=== PATIENT | female | born 1955 | race Caucasian/White ===

== ENCOUNTER → 2020-03-06 | Outpatient (CLI) | payer MEDICARE, MEDICAID ==
[~2020-03-06] MED LIST: ALBU18HF2 INH; ASPI81TA44 PO; BARIUM SULFATE 340 ML SUSP.RECON***PROCEDURE AREA ONLY**DONT ENTER PO ONE; DULO60CA65 PO; LOSA1TAB39 PO; MONT10TA21 PO; PANT40TA54 PO
== END | disposition home or self-care (01) ==
LOC: RAD 09:21
PROVIDERS: ATTEND Internal Medicine
DX: K31.1 Adult hypertrophic pyloric stenosis (principal)
CPT/HCPCS: 74220

== ENCOUNTER 2020-05-26 10:26 | Day surgery (SDC) | payer MEDICARE, MEDICAID ==
[2020-05-26] VITALS (9 sets, daily range): BP systolic 128–146; BP diastolic 42–89
[~2020-05-26 10:26] MED LIST changes: -BARIUM SULFATE 340 ML SUSP.RECON***PROCEDURE AREA ONLY**DONT ENTER PO ONE
[2020-05-26] MEDS ORDERED: fentaNYL/PF 50MCG/1 ML 2ML syringe ONE (10:43)
[2020-05-26] MEDS ORDERED: LIDOcaine 1% (10mg/ml)w/preservative injection 20ml MDV ONE (10:43)
[2020-05-26] MEDS ORDERED: iohexol 350 MG/ML 50ML vial IV ONE (10:43)
[2020-05-26] MEDS ORDERED: iohexol 350MG/ML 100ml bottle IV ONE ×2 (10:43→12:16)
[2020-05-26] MEDS ORDERED: midazolam 2 mg/2 ml injection ONE ×3 (10:43→11:59)
[2020-05-26] MEDS ORDERED: heparin 1,000unit/ml 10ml vial 10 ML ONE (10:43)
[2020-05-26] MEDS ORDERED: normal saline 1,000 ML IV SCH (10:50)
[2020-05-26] MEDS ORDERED: diphenhydrAMINE 25mg capsule PO PRN (10:50)
[2020-05-26] MEDS ORDERED: SIMV-45 PO (11:01)
[2020-05-26] MEDS ORDERED: POTA15TA (11:01)
[2020-05-26] MEDS ORDERED: SUCR1TAB PO (11:01)
[2020-05-26] MEDS ORDERED: FLUT16SP26 (11:01)
[2020-05-26] MEDS ORDERED: LORA10TA7 PO (11:01)
[2020-05-26] MEDS ORDERED: LEVO88TA7 PO (11:01)
[2020-05-26] MEDS ORDERED: MULT-1085 PO (11:01)
[2020-05-26] MEDS ORDERED: FERR-106 PO (11:01)
[2020-05-26 11:23] LABS: BASOPHILS # (AUTO) 0.1 X10'3 (0-0.2); BASOPHILS % (AUTO) 0.8 % (0-1); EOSINOPHILS # (AUTO) 0.4 X10'3 (0-0.9); EOSINOPHILS % (AUTO) 3.9 % (0-6); HEMATOCRIT 35.6 % (35.0-45.0); HEMOGLOBIN 11.9 g/dl (12.0-16.0); LYMPHOCYTES # (AUTO) 2.5 X10'3 (1.1-4.8); LYMPHOCYTES % (AUTO) 22.9 % (21-51); MEAN CORPUSCULAR HEMOGLOBIN 28.3 PG (27.0-31.0); MEAN CORPUSCULAR HGB CONC 33.4 g/dL (33.0-36.5); MEAN CORPUSCULAR VOLUME 84.7 FL (78-98); MONOCYTES # (AUTO) 0.7 X10'3 (0-0.9); MONOCYTES % (AUTO) 6.1 % (2-12); NEUTROPHILS # (AUTO) 7.1 X10'3 (1.8-7.7); NEUTROPHILS % (AUTO) 66.3 % (42-75); PLATELET COUNT 329 X10'3 (140-440); RED CELL DISTRIBUTION WIDTH 14.3 % (11.5-14.5); WHITE BLOOD COUNT 10.8 X10'3 (4.5-11.0)
[2020-05-26 11:29] LABS: ALBUMIN 3.4 G/DL (3.4-5.0); ANION GAP 11 (8-16); BLOOD UREA NITROGEN 14 MG/DL (7-18); BUN/CREATININE RATIO 10.1 (6.6-38.0); CALCIUM 9.4 MG/DL (8.5-10.1); CHLORIDE 106 MMOL/L (99-107); CREATININE 1.39 MG/DL (0.40-0.90); GLUCOSE 112 MG/DL (70-104); MAGNESIUM 1.8 MG/DL (1.5-2.4); POTASSIUM 3.1 MMOL/L (3.5-5.1); SODIUM 144 MMOL/L (135-145); TOTAL CARBON DIOXIDE 27.3 MMOL/L (24-32); eGFR 38 ML/MIN
[2020-05-26] MEDS ORDERED: adenosine kit for FFR above 120KG-Cath lab only IV ONE (12:11)
[2020-05-26] MEDS ORDERED: HYDROmorphone 1 mg/ml syringe ONE (12:20)
[2020-05-26] MEDS ORDERED: clopidogrel 300mg tablet ONE (12:31)
[2020-05-26] MEDS ORDERED: normal saline 1000ml 1,000 ML IV SCH (13:10)
[2020-05-26] MEDS ORDERED: ondansetron/PF 4mg/2ml inj IV PRN (13:10)
[2020-05-26] MEDS ORDERED: HYDROcodone/acetaminophen 5mg/325mg tablet PO PRN (13:15)
[2020-05-26] MEDS ORDERED: OXAZEpam 15mg capsule PO PRN (13:15)
[2020-05-26] MEDS ORDERED: HYDROcodone/acetaminophen 10/325mg tab PO PRN (13:15)
[2020-05-26] MEDS ORDERED: proCHLORperazine 10 MG/2 ml inj IV PRN (13:50)
[2020-05-26] MEDS ORDERED: acetaminophen 325mg tablet PO PRN (13:50)
[2020-05-26] MEDS ORDERED: potassium Cl 20 mEq SR tablet PO ONE (13:55)
[2020-05-26] MEDS ORDERED: potassium Cl 20mEq/100mL bag 100 ML IV ONE (13:55)
== END 2020-05-26 16:35 | disposition home or self-care (01) ==
LOC: SSTAY O 10:26
PROVIDERS: ATTEND Internal Medicine Cardiovascular Disease
DX: I25.10 Atherosclerotic heart disease of native coronary artery without angina pectoris (principal)
CPT/HCPCS: 36415; 80048; 83735; 85025; 85610; 93458; 99152; 99153; C1751; C1760; C1769; C1874; C1894; C9600; J0153; J1170; J1644; J2001; J2250; J3010; J7030; Q0163; Q9967; 93005; A4620; A6258

== ENCOUNTER 2024-12-26 08:44 | Outpatient (CLI) | payer MEDICARE, MEDICAID ==
[~2024-12-26 08:44] MED LIST changes: -ASPI81TA44 PO; -DULO60CA65 PO; +FERR-106 PO; +FLUT16SP26; +LEVO88TA7 PO; +LORA10TA7 PO; +MONT-47 PO; -MONT10TA21 PO; +MULT-1085 PO; +POTA15TA18; +SIMV-45 PO; +SUCR1TAB PO
--- NOTE | 2024-12-26 19:20 | VASCULAR REPORT ---
SEGMENTAL PRESSURES/ANKLE-BRACHIAL INDEX REASON FOR EXAMINATION: Bilateral lower extremity claudication and peripheral vascular disease. Numbn ess in bilateral legs and feet. COMPARISON: None TECHNIQUE: Patient evaluation includes blood pressures, ankle-brachial indices, and segmental doppler waveform analysis at rest and post exercise when applicable. Toe brachial indices (TBI) are taken w hen necessary. FINDINGS: SEGMENTAL BLOOD PRESSURES ARE FOLLOWS: RIGHT: Brachial: 152 mm Hg. Posterior tibial: 180 mm Hg Dorsalis pedis: 140 mm Hg LUIS ENRIQUE: 1.18 Post exercise measurements were not performed. LEFT: Brachial: 150 mm Hg. Posterior tibial: 156 mm Hg Dorsalis pedis: 122 mm Hg LUIS ENRIQUE: 1.03 Post exercise measurements were not performed. Multiphasic waveforms are identified in bilateral posterior tibial and dorsal pedal arteries. There is expected multiphasic waveform in bilateral brachial arteries. IMPRESSION: Normal ABIs Note: Non-compressible/calcified vessels such as seen in the diabetic/ESRD population render falsely elevated and inaccurate segmental pressures. Correlation with doppler Ultrasound evaluation of the lo wer extremities is recommended in this population.
== END 2024-12-26 23:59 | disposition home or self-care (01) ==
LOC: VAS 08:44
PROVIDERS: ATTEND Internal Medicine Cardiovascular Disease
DX: I73.9 Peripheral vascular disease, unspecified (principal); R20.2 Paresthesia of skin
CPT/HCPCS: 93922